=== PATIENT | male | born 1960 | race Caucasian/White ===

== ENCOUNTER 2016-07-15 19:33 | Observation (INO) | payer BC ==
--- NOTE | ~2016-07-15 | OP ---
Record Of Operation [facility] [address] [place]. [address] NAME: STONE MARQUES : 56 STATUS : ADM Sherine PAT#: [id number] AGE: 56 ADM/REG DATE : 07/15/16 MR#: [id number] REPORT SERV DATE: 07/16/16 DICTATED BY: DATE: REPORT STATUS : Draft TRANSCRIBED BY: MODL DATE: 07/16/16 DATE OF PROCEDURE: 07/16/2016 CHIEF COMPLAINT/REASON FOR STUDY: Atrial fibrillation. PROCEDURE: After obtaining informed consent, Anesthesia administered IV propofol to achieve adequate conscious sedation. The transesophageal probe was readily inserted without complication. The salient 2D echocardiographic windows were obtained including color and spectral Doppler assessment. Following verification of no left atrial thrombus present. DC cardioversion was performed, 200 joules x1 with return to sinus rhythm. 1. The left ventricular systolic function is normal with a calculated ejection fraction between 55 and 60%. No clear evidence of regional wall motion abnormalities. 2. The right atrium is normal in size and systolic function. 3. The left atrium is dilated in size. There is no evidence of left atrial thrombus. 4. The right atrium is normal in size. No evidence of right atrial thrombus. 5. The left atrial appendage was interrogated at multiple levels and depths. Doppler velocity within the left atrial appendage ranged between 60 and 120 cm/second. 6. The mitral valve is normal with preserved leaflet motion. There was no evidence of mitral stenosis. There was mild regurgitation seen by color Doppler assessment. 7. The tricuspid valve is normal with preserved leaflet motion. No evidence of tricuspid regurgitation or stenosis was visualized. 8. The aortic valve was normal and trileaflet. No aortic stenosis or regurgitation seen with color Doppler assessment. 9. The pulmonary valve was normal. No evidence of pulmonary valvular regurgitation via color Doppler assessment. 10.The aorta was normal. There was mild atherosclerotic plaque seen in the thoracic aorta. 11.The pericardium was normal without evidence of pericardial effusion. 12.The interatrial septum was normal without evidence of patent foramen ovale or atrial septal defect. 13.The left upper pulmonary vein was interrogated. There was no evidence of pulmonary vein systolic flow reversal on Doppler assessment. IMPRESSION: Successful NATALIE cardioversion. YUE/ODILON Magnolia Hannah M.D. / [id number] CC: Dimas Del Toro M.D. Record Of Operation [address] [address] NAME: STONE MARQUES : 56 STATUS : ADM Sherine PAT#: [id number] AGE: 56 ADM/REG DATE : 07/15/16 MR#: [id number] REPORT SERV DATE: 07/16/16 DICTATED BY: DATE: REPORT STATUS : Draft TRANSCRIBED BY: MODL DATE: 07/16/16 Nelda Conklin MD
--- NOTE | ~2016-07-15 | HP ---
History And Physical [place] [address] [facility] [place]. [address] NAME: EYAL MARQUES : 56 STATUS : ADM Sherine PAT#: [id number] AGE: 56 ADM/REG DATE : 07/15/16 MR#: [id number] REPORT SERV DATE: 07/16/16 DICTATED BY: DATE: REPORT STATUS : Draft TRANSCRIBED BY: MODL DATE: 07/16/16 DATE OF ADMISSION: 07/15/2016 CHIEF COMPLAINT/REASON FOR ADMISSION: Atrial fibrillation with rapid ventricular response. HISTORY OF PRESENT ILLNESS: Mr. Eyal Marques is a very pleasant 56-year-old gentleman with a known history of paroxysmal atrial fibrillation, who presented to [facility]. He stated that on Saturday, he felt well and then when he got up Saturday morning, he just felt slightly lethargic, and he felt like his heart was racing like he was back in atrial fibrillation. He denied any chest pain or shortness of breath. At [facility], he was found to have a mildly abnormal troponin at 0.13 and transferred here for further workup. He denies any antecedent illnesses. He denies any chest pain or shortness of breath. He does state that he was taken off his methimazole due to normalization of his thyroid function with plans for recheck upcoming with his sluice tender. He denies any bleeding episodes. He was taken off his Xarelto due to cost and minimal recurrence of atrial fibrillation. PAST MEDICAL HISTORY: 1. Hypertension. 2. Tobacco abuse. 3. Paroxysmal atrial fibrillation. SOCIAL HISTORY: The patient is a smoker. He lives alone. He smokes one pack per day. He has been abstinent from alcohol for six months. He does not use extracurricular drugs. FAMILY HISTORY: Significant for mother and father who in their 60s of unknown causes. REVIEW OF SYSTEMS: All systems reviewed and are negative except that the patient has stated that he has occasional night sweats and otherwise negative. PHYSICAL EXAMINATION: VITAL SIGNS: Blood pressures range from 106-121/65-74. Pulse is 77-95, respirations 18, and oxygen saturations 96% on room air. GENERAL: Mr. Marques is a 56-year-old gentleman. He is in no distress. NECK: No jugular venous distention. No carotid bruits. HEART: Irregular, rate controlled. Soft S1, S2. I could not appreciate murmurs, rubs, or gallops. LUNGS: Clear to auscultation in all hernadez. ABDOMEN: Soft and nontender. EXTREMITIES: Warm and well perfused. There is no pitting edema present. NEUROLOGIC: I could not appreciate focal neurologic deficits. MUSCULOSKELETAL: No clubbing or cyanosis of the digits. History And Physical [address] [place]. [address] NAME: EYAL MARQUES : 56 STATUS : ADM Sherine PAT#: [id number] AGE: 56 ADM/REG DATE : 07/15/16 MR#: [id number] REPORT SERV DATE: 07/16/16 DICTATED BY: DATE: REPORT STATUS : Draft TRANSCRIBED BY: MODL DATE: 07/16/16 DATA: Laboratory results performed at [facility] demonstrated a potassium of 4, a BUN of 14, a creatinine of 1.1. Hemoglobin 15.4, hematocrit 44.9. Troponin 0.13. INR is 1.0. EKG performed on 07/15/2016 at [facility] demonstrated atrial fibrillation with controlled ventricular response. There were no ischemic ST-T segment changes. Another EKG performed demonstrated atrial fibrillation with rapid ventricular response again. No ischemic ST-T segment changes were noted. IMPRESSION, REPORT, AND PLAN: 1. Paroxysmal atrial fibrillation. 2. Hypertension, well controlled. 3. Tobacco abuse. RECOMMENDATIONS: I discussed the risks, benefits, and alternatives of DC cardioversion with the patient, and he in addition to NATALIE to evaluate for left atrial thrombus, and the patient is agreeable to proceed. We will restart his anticoagulation with Xarelto 20 mg per day. If there were no complications post-cardioversion, then we will plan to discharge to home with close outpatient followup with Dr. Allen to consider antiarrhythmic therapy and continued anticoagulation. It has been my pleasure to participate in his care. [facility]/ODILON Magnolia Hannah M.D. / [id number] CC: Purnima Mcgraw JOHN [facility]. C. Samuel Ledford, M.D.
[~2016-07-15 19:33] MED LIST: ASABAYER PO; DILT-XR120 MG PO; MULTI-VIT HP PO; POTASSIUM OTC; PRIN5 PO; SURBEX-T1 TAB PO; TAPAZOLE10 MG PO; TAPAZOLE5 MG PO; VITAMIN B-121000 MC1; VITAMIN B-121000 MC1 PO; XARELTO20 MG PO
[2016-07-15] MEDS ORDERED: CARDCD120 PO (20:43)
[2016-07-15] MEDS ORDERED: PRIN5 PO (20:43)
[2016-07-15] MEDS ORDERED: ASABAYER PO (20:44)
[2016-07-15] MEDS ORDERED: THERGRANM PO (20:44)
[2016-07-15] MEDS ORDERED: B 12 PO (20:45)
[2016-07-16 09:03] LABS: BASOPHILS 0.2 %; BASOPHILS ABSOLUTE 0.02 10/3/uL (0.0-0.16); EOSINOPHILS 2.8 %; EOSINOPHILS ABSOLUTE 0.25 10/3/uL (0.0-0.53); HEMATOCRIT 45.6 % (40.0-51.0); HEMOGLOBIN 16.2 g/dL (13.6-17.8); IMMATURE GRANULOCYTES 0.2 %; IMMATURE GRANULOCYTES ABSOLUTE 0.02 10/3/uL (0.0-0.11); LYMPHOCYTES 29.6 %; LYMPHOCYTES ABSOLUTE 2.68 10/3/uL (0.67-4.30); MEAN CORPUS HGB CONC 35.5 g/dL (32.0-36.0); MEAN CORPUSCULAR VOLUME 92.9 fL (80-100); MONOCYTES 7.1 %; MONOCYTES ABSOLUTE 0.64 10/3/uL (0.21-1.20); NEUTROPHILS 60.1 %; NEUTROPHILS ABSOLUTE 5.44 10/3/uL (2.02-8.40); PLATELET COUNT 203 10/3/uL (150-400); RBC DISTRIBUTION WIDTH 12.8 % (12.0-16.0); RED CELL COUNT 4.91 10/6/uL (4.7-6.1); WHITE BLOOD CELLS 9.1 10/3/uL (4.5-10.5)
[2016-07-16 09:08] LABS: MANUAL DIFF NO %
[2016-07-16 09:14] LABS: INTERNATIONAL NORMAL RATI 1.1 UNITS (-); PROTIME (NOT ORD) 13.9 SEC (12.0-14.5)
[2016-07-16 09:24] LABS: CALCIUM, SERUM 8.3 MG/DL (8.5-10.4); CHLORIDE, SERUM 113 MMOL/L (96-112); CO2 (CARBON DIOXIDE) 24 MMOL/L (24-34); FREE T4 0.98 NG/DL (0.76-1.46); GFR AFRICAN AMERICAN 114 ML/MIN (>=60); GFR NON AFRICAN AMERICAN 98 ML/MIN (>=60); POTASSIUM, SERUM 4.2 MMOL/L (3.5-5.3); SODIUM, SERUM 138 MMOL/L (135-148)
[2016-07-16 09:26] LABS: BUN (BLOOD UREA NITROGEN) 10 MG/DL (6-23); GLUCOSE, SERUM 107 MG/DL (60-99); TROPONIN I 0.06 NG/ML (<0.05)
[2016-07-16] MEDS ORDERED: XARELTO20 MG PO (11:42)
== END 2016-07-16 16:27 | disposition home or self-care (01) ==
LOC: 7NO 19:33
PROVIDERS: Internal Medicine
PROC: B246ZZ4 Ultrasonography of Right and Left Heart, Transesophageal (ICD-10-PCS; principal; 2016-07-15)
DX: I48.0 Paroxysmal atrial fibrillation (principal); I10 Essential (primary) hypertension; E05.90 Thyrotoxicosis, unspecified without thyrotoxic crisis or storm; F41.9 Anxiety disorder, unspecified; F17.210 Nicotine dependence, cigarettes, uncomplicated; M19.90 Unspecified osteoarthritis, unspecified site; Z79.01 Long term (current) use of anticoagulants; Z88.8 Allergy status to other drugs, medicaments and biological substances; Z79.899 Other long term (current) drug therapy; Z98.890 Other specified postprocedural states
CPT/HCPCS: 80048; 84439; 84443; 84484; 85025; 85610; 92960; 93005; 93312; 93320; 93325; A9270-GY; G0378